=== PATIENT | female | born 1980 | race African-American/Black ===

== ENCOUNTER 2020-12-02 03:56 | Inpatient (IN) ==
[2020-12-02] MEDS ORDERED: ONDANSETRON 4 MG/2 ML VIAL IV STA (04:17)
[2020-12-02] MEDS ORDERED: ALUM/MAG/SIMETH/LIDO VISC 1:1 30 ML BOTTLE PO STA (04:17)
[2020-12-02] MEDS ORDERED: SODIUM CHLORIDE 0.9% 1,000 ML IV STA (04:17)
[2020-12-02] MEDS ORDERED: PANTOPRAZOLE 40 MG VIAL IV STA (04:17)
[2020-12-02 04:30] LABS: Basophils % 0.6 % (0.0-0.8); Eosinophils # 0.1 10*3/uL (0.0-0.87); Eosinophils % 0.8 % (0.00-10.9); Hematocrit 31.1 VOL% (35.7-47.0); Hemoglobin 9.5 GM/DL (12.0-16.0); Immature Granulocytes % 0.5 %; Immature Granulocytes Absolute 0.03 #; Lymphocytes # 2.8 10*3/uL (1.4-4.0); Lymphocytes % 42.9 % (21.3-54.2); Mean Corpuscular HGB Conc 30.5 GM/DL (32-36); Mean Corpuscular Volume 89.1 FL (87-102); Monocytes % 7.4 % (1.7-12.7); Neutrophils % 47.8 % (38.7-73.9); Platelet Count 301 T/CUMM (130-400); Red Blood Count 3.49 MC/CUMM (3.8-5.5); Red Cell Distribution Width 21.3 % (9.3-17.3); White Blood Count 6.6 T/CUMM (4-12)
[2020-12-02 04:44] LABS: Alanine Aminotransferase 48 U/L (13-56); Albumin 2.9 G/DL (3.4-5.0); Alkaline Phosphatase 99 U/L (45-117); Amylase 114 U/L (25-115); Aspartate Amino Transferase 134 U/L (0-37); Blood Urea Nitrogen 6 MG/DL (7-18); Calcium 8.7 MG/DL (8.5-10.1); Carbon Dioxide 23 MMOL/L (21-32); Estimated Glom Filtration Rate 95 ML/MIN; Glucose 90 MG/DL (74-106); Osmolality,Calculated 278.3 MOS/KG (273-304); Potassium 4.1 MMOL/L (3.5-5.1); Sodium 141 MMOL/L (136-145); Total Protein 7.6 G/DL (6.4-8.2); Troponin I < 0.015 NG/ML (0.00-0.045)
[2020-12-02] MEDS ORDERED: MAGNESIUM SULF RIDER 2 GM in PREMIX 1 EACH IV STA (04:51)
[2020-12-02 05:44] LABS: Barbiturates Screen,Urine Negative (Negative); Benzodiazepines Screen,Urine Negative (Negative); Cannabinoid Screen,Urine Negative (Negative); Opiate Screen,Urine Negative (Negative); Phencyclidine Screen,Urine Negative (Negative)
[2020-12-02] MEDS ORDERED: DEXTROSE 50% 25 GM/50 ML VIAL IV PRN (05:47)
[2020-12-02] MEDS ORDERED: ONDANSETRON 4 MG/2 ML VIAL IV PRN (05:47)
[2020-12-02] MEDS ORDERED: GLUCAGON 1 MG VIAL IM PRN (05:47)
[2020-12-02] MEDS ORDERED: SODIUM CHLORIDE 0.9% 1,000 ML IV PRN (05:52)
[2020-12-02] MEDS ORDERED: MORPHINE 4 MG/1 ML VIAL IV PRN (06:41)
[2020-12-02 06:45] LABS: Bacteria,Urine Occasional /HPF (Few); Bilirubin,Urine Negative (Negative); Blood, Urine Negative (Negative); Glucose,Urine (UA) Negative (Negative); Ketones,Urine Negative (Negative); Mucus,Urine Occasional /LPF (Occasional); Nitrite,Urine Negative (Negative); Protein,Urine Negative; RBC,Urine 1 /HPF (0-4); Squamous Epithelial Cell,Urine Occasional /HPF (0-10); Urine Appearance Slightly Hazy (Clear); Urine Color Yellow (Yellow); Urine Specific Gravity 1.018 (1.001-1.035); Urine Urobilinogen < 2.0 EU/DL (0.2-1.0); WBC,Urine 8 /HPF (0-6)
[2020-12-02 09:16] LABS: Hematocrit 27.3 VOL% (35.7-47.0); Hemoglobin 8.2 GM/DL (12.0-16.0)
[2020-12-02] MEDS: FOLIC ACID 1 MG TABLET PO SCH (10:07)
[2020-12-02] MEDS: MULTIVITAMIN (CENTRUM) TABLET PO SCH (10:07)
[2020-12-02] MEDS: SODIUM CHLORIDE 0.9% 1,000 ML IV SCH ×2 (10:07→20:59)
[2020-12-02] MEDS: PANTOPRAZOLE 40 MG VIAL IV SCH ×2 (10:07→20:12)
[2020-12-02] MEDS: THIAMINE 100 MG TABLET PO SCH (10:07)
[2020-12-02 12:12] LABS: Hematocrit 27.4 VOL% (35.7-47.0); Hemoglobin 8.1 GM/DL (12.0-16.0)
[2020-12-02] MEDS: OCTREOTIDE 500 MCG in SODIUM CHLORIDE 0.9% 100 ML IV SCH (12:31)
[2020-12-02] MEDS ORDERED: LORazepam 2 MG/1 ML VIAL ONE (13:53)
[2020-12-02] MEDS: LORazepam 2 MG/1 ML VIAL IV PRN (13:58)
[2020-12-02 18:58] LABS: Hematocrit 26.1 VOL% (35.7-47.0); Hemoglobin 7.6 GM/DL (12.0-16.0)
[2020-12-03 00:42] LABS: Hematocrit 24.3 VOL% (35.7-47.0); Hemoglobin 7.5 GM/DL (12.0-16.0)
[2020-12-03] MEDS: SODIUM CHLORIDE 0.9% 1,000 ML IV SCH ×4 (04:00→21:03)
[2020-12-03 05:11] LABS: Hematocrit 25.6 VOL% (35.7-47.0); Hemoglobin 7.8 GM/DL (12.0-16.0)
[2020-12-03] MEDS: OCTREOTIDE 500 MCG in SODIUM CHLORIDE 0.9% 100 ML IV SCH (07:03)
[2020-12-03 07:32] LABS: Calcium 7.9 MG/DL (8.5-10.1); Osmolality,Calculated 273.7 MOS/KG (273-304); Potassium 4.3 MMOL/L (3.5-5.1)
[2020-12-03] MEDS ORDERED: LACTATED RINGERS 1,000 ML IV SCH (08:00)
[2020-12-03] MEDS: MULTIVITAMIN (CENTRUM) TABLET PO SCH (08:37)
[2020-12-03] MEDS: THIAMINE 100 MG TABLET PO SCH (08:37)
[2020-12-03] MEDS: FOLIC ACID 1 MG TABLET PO SCH (08:37)
[2020-12-03] MEDS: PANTOPRAZOLE 40 MG VIAL IV SCH ×2 (08:38→21:03)
[2020-12-03] MEDS ORDERED: SODIUM CHLORIDE 0.9% 1,000 ML IV PRN (09:02)
[2020-12-03] MEDS ORDERED: MAGNESIUM SULF RIDER 2 GM in PREMIX 1 EACH IV PRN (10:17)
[2020-12-03] MEDS ORDERED: MAGNESIUM SULF RIDER 4 GM in PREMIX 1 EACH IV PRN (10:17)
[2020-12-03 11:57] LABS: Bilirubin,Urine Negative (Negative); Blood, Urine Negative (Negative); Glucose,Urine (UA) Negative (Negative); Ketones,Urine Negative (Negative); Mucus,Urine Occasional /LPF (Occasional); Nitrite,Urine Negative (Negative); Protein,Urine Negative; RBC,Urine 2 /HPF (0-4); Squamous Epithelial Cell,Urine Occasional /HPF (0-10); Urine Appearance CLOUDY (Clear); Urine Color Yellow (Yellow); Urine Specific Gravity 1.009 (1.001-1.035); Urine Urobilinogen < 2.0 EU/DL (0.2-1.0)
[2020-12-03] MEDS ORDERED: propofoL 200 MG/20 ML VIAL IV ONE ×2 (13:16→13:23)
[2020-12-03] MEDS ORDERED: LIDOCAINE 2% 5 ML VIAL ONE (13:16)
[2020-12-03] MEDS: lisinopriL 20 MG TABLET PO SCH (14:14)
[2020-12-03] MEDS: ALBUTEROL 2.5 MG/3 ML NEB RESP TX SCH ×2 (15:30→19:03)
[2020-12-03 15:48] LABS: Hematocrit 30.8 VOL% (35.7-47.0); Hemoglobin 9.1 GM/DL (12.0-16.0)
[2020-12-03] MEDS: LORazepam 2 MG/1 ML VIAL IV PRN (17:36)
[2020-12-04] MEDS: ALBUTEROL 2.5 MG/3 ML NEB RESP TX SCH ×2 (00:48→07:24)
[2020-12-04] MEDS: OCTREOTIDE 500 MCG in SODIUM CHLORIDE 0.9% 100 ML IV SCH (02:54)
[2020-12-04 07:30] LABS: Basophils % 0.4 % (0.0-0.8); Eosinophils # 0.2 10*3/uL (0.0-0.87); Eosinophils % 3.1 % (0.00-10.9); Hematocrit 30.8 VOL% (35.7-47.0); Hemoglobin 9.5 GM/DL (12.0-16.0); Immature Granulocytes % 0.2 %; Immature Granulocytes Absolute 0.01 #; Lymphocytes # 1.4 10*3/uL (1.4-4.0); Lymphocytes % 26.4 % (21.3-54.2); Mean Corpuscular HGB Conc 30.8 GM/DL (32-36); Mean Corpuscular Volume 90.9 FL (87-102); Mean Platelet Volume 9.4 FL (9.6-12.0); Monocytes % 9.2 % (1.7-12.7); Neutrophils % 60.7 % (38.7-73.9); Platelet Count 169 T/CUMM (130-400); Red Blood Count 3.39 MC/CUMM (3.8-5.5); Red Cell Distribution Width 21.2 % (9.3-17.3); White Blood Count 5.1 T/CUMM (4-12)
[2020-12-04 07:41] VITALS: BP 137/96
[2020-12-04 07:45] LABS: Calcium 8.2 MG/DL (8.5-10.1); Osmolality,Calculated 271.7 MOS/KG (273-304)
[2020-12-04] MEDS: lisinopriL 20 MG TABLET PO SCH (08:45)
[2020-12-04] MEDS: FOLIC ACID 1 MG TABLET PO SCH (08:46)
[2020-12-04] MEDS: THIAMINE 100 MG TABLET PO SCH (08:46)
[2020-12-04] MEDS: MULTIVITAMIN (CENTRUM) TABLET PO SCH (08:46)
[2020-12-04] MEDS: PANTOPRAZOLE 40 MG VIAL IV SCH (08:46)
== END 2020-12-04 10:46 | disposition home or self-care (01) | DRG 378 ==
LOC: EDBD → EDUNIT# → SUATTDRO → N.ED 03:56 → N.EDINP 05:47 → N.5E 08:30
PROVIDERS: ADMIT Internal Medicine; ATTEND Internal Medicine

== ENCOUNTER 2022-04-17 05:17 | Inpatient (IN) ==
[2022-04-17] MEDS ORDERED: SODIUM CHLORIDE 0.9% 1,000 ML IV STA ×2 (05:28→07:39)
[2022-04-17 05:53] LABS: Basophils # 0.1 10*3/uL (0.0-0.2); Basophils % 1.1 % (0.0-0.8); Eosinophils % 0.7 % (0.00-10.9); Hematocrit 25.7 VOL% (35.7-47.0); Hemoglobin 7.9 GM/DL (12.0-16.0); Immature Granulocytes % 0.2 %; Immature Granulocytes Absolute 0.01 #; Lymphocytes # 2.4 10*3/uL (1.4-4.0); Lymphocytes % 43.7 % (21.3-54.2); Mean Corpuscular HGB Conc 30.7 GM/DL (32-36); Mean Corpuscular Volume 98.1 FL (87-102); Mean Platelet Volume 8.7 FL (9.6-12.0); Monocytes # 0.6 10*3/uL (0.11-0.8); Monocytes % 11.6 % (1.7-12.7); NRBC # 0.02 10*3/uL; Neutrophils % 42.7 % (38.7-73.9); Platelet Count 216 T/CUMM (130-400); Red Blood Count 2.62 MC/CUMM (3.8-5.5); Red Cell Distribution Width 19.9 % (9.3-17.3); White Blood Count 5.5 T/CUMM (4-12)
[2022-04-17] MEDS ORDERED: ONDANSETRON 4 MG/2 ML VIAL IV STA (06:11)
[2022-04-17] MEDS ORDERED: HYDROmorphone 1 MG/1 ML SYRINGE IV STA (06:11)
[2022-04-17 06:15] LABS: Alanine Aminotransferase 39 U/L (13-56); Albumin 2.8 G/DL (3.4-5.0); Alkaline Phosphatase 134 U/L (45-117); Aspartate Amino Transferase 105 U/L (0-37); Bilirubin,Total < 0.39 MG/DL (0.20-1.00); Blood Urea Nitrogen 6 MG/DL (7-18); Calcium 8.4 MG/DL (8.5-10.1); Carbon Dioxide 23 MMOL/L (21-32); Chloride 110 MMOL/L (98-107); Glucose 94 MG/DL (74-106); Osmolality,Calculated 283.8 MOS/KG (273-304); Potassium 3.8 MMOL/L (3.5-5.1); Sodium 144 MMOL/L (136-145); Total Protein 6.8 G/DL (6.4-8.2)
[2022-04-17 06:52] LABS: PT Patient Result 11.2 SECS (10.1-12.1); Partial Thromboplastin Time 22.6 SECS (23.7-32.9)
[2022-04-17 07:04] LABS: Barbiturates Screen,Urine Negative (Negative); Benzodiazepines Screen,Urine Negative (Negative); Cannabinoid Screen,Urine Negative (Negative); Opiate Screen,Urine Negative (Negative); Phencyclidine Screen,Urine Negative (Negative)
[2022-04-17] MEDS ORDERED: LEVOFLOXACIN INJ 500 MG/100 ML PREMIX IV STA (09:19)
[2022-04-17 10:07] LABS: Bacteria,Urine Occasional /HPF (Few); Mucus,Urine Occasional /LPF (Occasional); Squamous Epithelial Cell,Urine Occasional /HPF (0-10)
[2022-04-17 10:08] LABS: Bilirubin,Urine Negative (Negative); Glucose,Urine (UA) Negative (Negative); Ketones,Urine Negative (Negative); Nitrite,Urine Negative (Negative); Protein,Urine 30 mg/dL (Negative); Urine Appearance Clear (Clear); Urine Color Yellow (Yellow); Urine Specific Gravity 1.025 (1.001-1.035); Urine pH 5.5 (4.5-8.0)
[2022-04-17 10:09] LABS: Blood, Urine Negative (Negative); Urine Urobilinogen 0.2 eU/dL (<2.0)
[2022-04-17] MEDS ORDERED: ONDANSETRON 4 MG/2 ML VIAL IV PRN (10:42)
[2022-04-17] MEDS ORDERED: hydrALAZINE 20 MG/1 ML VIAL IV PRN (10:42)
[2022-04-17] MEDS ORDERED: DEXTROSE 10% 250 ML BAG IV PRN (10:42)
[2022-04-17] MEDS ORDERED: GLUCAGON 1 MG VIAL IM PRN (10:42)
[2022-04-17] MEDS ORDERED: THIAMINE INJ 100 MG, FOLIC ACID INJ 1 MG, MULTIVITAMIN INJ 10 ML in SODIUM CHLORIDE 0.4... IV SCH (11:00)
[2022-04-17] MEDS: chlordiazePOXIDE 25 MG CAPSULE PO SCH ×3 (11:40→22:15)
[2022-04-17 11:49] LABS: Folate 8.66 NG/ML (5.38-24.0)
[2022-04-17] MEDS ORDERED: MAGNESIUM SULF RIDER 4 GM/100 ML PREMIX IV PRN (13:44)
[2022-04-17] MEDS: MORPHINE 2 MG/1 ML SYRINGE IV PRN ×2 (14:13→20:35)
[2022-04-17] MEDS: LORazepam 1 MG TABLET PO PRN (20:35)
[2022-04-18 02:36] LABS: Basophils % 0.4 % (0.0-0.8); Eosinophils # 0.1 10*3/uL (0.0-0.87); Hematocrit 23.6 VOL% (35.7-47.0); Hemoglobin 7.1 GM/DL (12.0-16.0); Immature Granulocytes % 0.4 %; Immature Granulocytes Absolute 0.02 #; Lymphocytes % 20.4 % (21.3-54.2); Mean Corpuscular HGB Conc 30.1 GM/DL (32-36); Mean Corpuscular Volume 98.3 FL (87-102); Mean Platelet Volume 8.9 FL (9.6-12.0); Monocytes # 0.4 10*3/uL (0.11-0.8); Monocytes % 8.6 % (1.7-12.7); NRBC # 0.02 10*3/uL; Neutrophils % 69.2 % (38.7-73.9); Platelet Count 155 T/CUMM (130-400); Red Cell Distribution Width 19.4 % (9.3-17.3); White Blood Count 5.1 T/CUMM (4-12)
[2022-04-18 03:03] LABS: Albumin 2.3 G/DL (3.4-5.0); Bilirubin,Total 0.7 MG/DL (0.20-1.00); Calcium 7.2 MG/DL (8.5-10.1); Osmolality,Calculated 274.4 MOS/KG (273-304); Potassium 3.4 MMOL/L (3.5-5.1); Total Protein 5.7 G/DL (6.4-8.2)
[2022-04-18] MEDS: MORPHINE 2 MG/1 ML SYRINGE IV PRN (05:45)
[2022-04-18] MEDS: chlordiazePOXIDE 25 MG CAPSULE PO SCH ×4 (05:45→23:05)
[2022-04-18] MEDS ORDERED: PANTOPRAZOLE 40 MG TABLET PO SCH (09:00)
[2022-04-18] MEDS ORDERED: FOLIC ACID 1 MG TABLET PO SCH (09:00)
[2022-04-18] MEDS: PROMETHAZINE INJ 25 MG in SODIUM CHLORIDE 0.9% 50 ML IV SCH ×2 (12:55→16:58)
[2022-04-18] MEDS: lisinopriL 20 MG TABLET PO SCH (13:03)
[2022-04-18] MEDS: PANTOPRAZOLE 40 MG TABLET PO SCH ×2 (13:03→20:37)
[2022-04-18] MEDS: 1: THIAMINE INJ 100 MG, FOLIC ACID INJ 1 MG, MULTIVITAMIN INJ 10 ML in SODIUM CHLORIDE 0 IV SCH (13:04)
[2022-04-19] MEDS: 1: THIAMINE INJ 100 MG, FOLIC ACID INJ 1 MG, MULTIVITAMIN INJ 10 ML in SODIUM CHLORIDE 0 IV SCH ×2 (00:17→16:06)
[2022-04-19] MEDS: chlordiazePOXIDE 25 MG CAPSULE PO SCH ×4 (05:27→22:32)
[2022-04-19 05:56] LABS: Basophils % 0.2 % (0.0-0.8); Eosinophils # 0.1 10*3/uL (0.0-0.87); Eosinophils % 2.7 % (0.00-10.9); Hematocrit 24.1 VOL% (35.7-47.0); Hemoglobin 7.1 GM/DL (12.0-16.0); Immature Granulocytes % 0.2 %; Immature Granulocytes Absolute 0.01 #; Lymphocytes # 1.2 10*3/uL (1.4-4.0); Lymphocytes % 29.9 % (21.3-54.2); Mean Corpuscular HGB Conc 29.5 GM/DL (32-36); Mean Corpuscular Volume 100.4 FL (87-102); Mean Platelet Volume 9.2 FL (9.6-12.0); Monocytes # 0.3 10*3/uL (0.11-0.8); Monocytes % 8.5 % (1.7-12.7); Neutrophils % 58.5 % (38.7-73.9); Platelet Count 169 T/CUMM (130-400)
[2022-04-19 06:12] LABS: Calcium 8.1 MG/DL (8.5-10.1); Osmolality,Calculated 279.1 MOS/KG (273-304); Potassium 3.5 MMOL/L (3.5-5.1)
[2022-04-19] MEDS: lisinopriL 20 MG TABLET PO SCH (08:09)
[2022-04-19] MEDS: PANTOPRAZOLE 40 MG TABLET PO SCH ×2 (08:09→20:28)
[2022-04-19] MEDS: MAGNESIUM SULF RIDER 2 GM/50 ML PREMIX IV PRN (08:10)
[2022-04-19] MEDS: POLYETHYLENE GLYCOL POWDER 17 GM PACK PO SCH (13:11)
[2022-04-20] MEDS: chlordiazePOXIDE 25 MG CAPSULE PO SCH ×3 (04:00→20:07)
[2022-04-20 05:20] LABS: Basophils % 0.2 % (0.0-0.8); Eosinophils # 0.1 10*3/uL (0.0-0.87); Hematocrit 24.9 VOL% (35.7-47.0); Immature Granulocytes % 0.7 %; Immature Granulocytes Absolute 0.03 #; Lymphocytes # 1.3 10*3/uL (1.4-4.0); Lymphocytes % 27.9 % (21.3-54.2); Mean Corpuscular HGB Conc 28.1 GM/DL (32-36); Mean Corpuscular Volume 100.8 FL (87-102); Mean Platelet Volume 9.6 FL (9.6-12.0); Monocytes # 0.4 10*3/uL (0.11-0.8); Monocytes % 9.4 % (1.7-12.7); Neutrophils % 59.8 % (38.7-73.9); Platelet Count 171 T/CUMM (130-400); Red Blood Count 2.47 MC/CUMM (3.8-5.5); Red Cell Distribution Width 18.6 % (9.3-17.3); White Blood Count 4.6 T/CUMM (4-12)
[2022-04-20 05:39] LABS: Calcium 8.5 MG/DL (8.5-10.1); Osmolality,Calculated 279.1 MOS/KG (273-304); Potassium 3.5 MMOL/L (3.5-5.1)
[2022-04-20] MEDS ORDERED: SODIUM CHLORIDE 0.9% 1,000 ML IV PRN (07:34)
[2022-04-20] MEDS: POLYETHYLENE GLYCOL POWDER 17 GM PACK PO SCH (09:08)
[2022-04-20] MEDS: PANTOPRAZOLE 40 MG TABLET PO SCH ×2 (09:08→20:07)
[2022-04-20] MEDS: lisinopriL 20 MG TABLET PO SCH (09:08)
[2022-04-20] MEDS: LORazepam 1 MG TABLET PO PRN (09:08)
[2022-04-20] MEDS: MAGNESIUM SULF RIDER 2 GM/50 ML PREMIX IV PRN (15:43)
[2022-04-20] MEDS: MAGNESIUM OXIDE 400 MG TABLET PO SCH (15:46)
[2022-04-20] MEDS: MORPHINE 2 MG/1 ML SYRINGE IV PRN (19:45)
[2022-04-20] MEDS: HYDROCORTISONE 25 MG SUPP RECTAL SCH (20:07)
[2022-04-21] MEDS: chlordiazePOXIDE 25 MG CAPSULE PO SCH ×2 (02:09→10:06)
[2022-04-21 05:05] LABS: Basophils % 0.7 % (0.0-0.8); Eosinophils # 0.1 10*3/uL (0.0-0.87); Eosinophils % 2.4 % (0.00-10.9); Hematocrit 25.5 VOL% (35.7-47.0); Hemoglobin 7.6 GM/DL (12.0-16.0); Immature Granulocytes % 0.4 %; Immature Granulocytes Absolute 0.02 #; Lymphocytes # 1.3 10*3/uL (1.4-4.0); Lymphocytes % 23.9 % (21.3-54.2); Mean Corpuscular HGB Conc 29.8 GM/DL (32-36); Mean Corpuscular Volume 97.7 FL (87-102); Mean Platelet Volume 9.8 FL (9.6-12.0); Monocytes # 0.6 10*3/uL (0.11-0.8); Monocytes % 11.6 % (1.7-12.7); NRBC # 0.03 10*3/uL; Platelet Count 148 T/CUMM (130-400); Red Blood Count 2.61 MC/CUMM (3.8-5.5); Red Cell Distribution Width 19.4 % (9.3-17.3); White Blood Count 5.4 T/CUMM (4-12)
[2022-04-21 05:25] LABS: Calcium 7.8 MG/DL (8.5-10.1); Osmolality,Calculated 280.1 MOS/KG (273-304); Potassium 3.2 MMOL/L (3.5-5.1)
[2022-04-21] MEDS ORDERED: MAGNESIUM SULF RIDER 4 GM/100 ML PREMIX IV ONE (07:45)
[2022-04-21] MEDS ORDERED: LACTATED RINGERS 1,000 ML IV SCH (08:00)
[2022-04-21] MEDS ORDERED: propofoL 200 MG/20 ML VIAL IV ONE (08:52)
[2022-04-21] MEDS ORDERED: LIDOCAINE 2% 5 ML VIAL ONE (08:52)
[2022-04-21] MEDS: lisinopriL 20 MG TABLET PO SCH (10:05)
[2022-04-21] MEDS: HYDROCORTISONE 25 MG SUPP RECTAL SCH (10:05)
[2022-04-21] MEDS: POLYETHYLENE GLYCOL POWDER 17 GM PACK PO SCH (10:05)
[2022-04-21] MEDS: PANTOPRAZOLE 40 MG TABLET PO SCH (10:06)
[2022-04-21] MEDS: MAGNESIUM OXIDE 400 MG TABLET PO SCH (10:06)
[2022-04-21] MEDS: POTASSIUM CHLORIDE 20 MEQ TABLET PO PRN ×3 (10:06→13:44)
[2022-04-21 12:10] VITALS: BP 163/88
== END 2022-04-21 13:56 | disposition home or self-care (01) | DRG 392 ==
LOC: EDUNIT# → EDBD → N.ED 05:17 → SUATTDRO 10:46 → N.EDINP 10:46 → N.5E 12:00
PROVIDERS: ADMIT Internal Medicine; ATTEND Hospitalist

== ENCOUNTER 2022-09-13 02:58 | Observation (INO) ==
[2022-09-13 03:38] LABS: Bacteria,Urine Occasional /HPF (Few); Squamous Epithelial Cell,Urine Moderate /HPF (0-10)
[2022-09-13 03:40] LABS: Bilirubin,Urine Negative (Negative); Blood, Urine Moderate mg/dL (Negative); Glucose,Urine (UA) Negative (Negative); Ketones,Urine Negative (Negative); Nitrite,Urine Negative (Negative); Protein,Urine 30 mg/dL (Negative); Urine Appearance Slightly Cloudy (Clear); Urine Color Yellow (Yellow); Urine pH 8.5 (4.5-8.0)
[2022-09-13 03:59] LABS: Basophils % 0.8 % (0.0-0.8); Eosinophils % 0.2 % (0.00-10.9); Hematocrit 27.8 VOL% (35.7-47.0); Hemoglobin 9.1 GM/DL (12.0-16.0); Immature Granulocytes % 0.4 %; Immature Granulocytes Absolute 0.02 #; Lymphocytes # 1.3 10*3/uL (1.4-4.0); Lymphocytes % 26.5 % (21.3-54.2); Mean Corpuscular HGB Conc 32.7 GM/DL (32-36); Mean Corpuscular Volume 96.9 FL (87-102); Mean Platelet Volume 9.8 FL (9.6-12.0); Monocytes # 0.5 10*3/uL (0.11-0.8); Monocytes % 10.6 % (1.7-12.7); NRBC # 0.02 10*3/uL; Neutrophils % 61.5 % (38.7-73.9); Platelet Count 125 T/CUMM (130-400); Red Blood Count 2.87 MC/CUMM (3.8-5.5); Red Cell Distribution Width 20.3 % (9.3-17.3); White Blood Count 4.7 T/CUMM (4-12)
[2022-09-13 04:19] LABS: Albumin 2.6 G/DL (3.4-5.0); Calcium 7.9 MG/DL (8.5-10.1); Potassium 3.4 MMOL/L (3.5-5.1); Total Protein 6.3 G/DL (6.4-8.2)
[2022-09-13] MEDS ORDERED: MORPHINE 2 MG/1 ML SYRINGE IV STA (04:41)
[2022-09-13] MEDS ORDERED: ONDANSETRON 4 MG/2 ML VIAL IV ONE (04:41)
[2022-09-13 04:51] LABS: Barbiturates Screen,Urine Negative (Negative); Benzodiazepines Screen,Urine Negative (Negative); Cannabinoid Screen,Urine Negative (Negative); Opiate Screen,Urine Negative (Negative); Phencyclidine Screen,Urine Negative (Negative)
[2022-09-13] MEDS ORDERED: ERTAPENEM 1,000 MG in SODIUM CHLORIDE 0.9% 100 ML IV SCH (07:00)
[2022-09-13] MEDS ORDERED: ONDANSETRON 4 MG/2 ML VIAL IV PRN (07:39)
[2022-09-13] MEDS ORDERED: hydrALAZINE 20 MG/1 ML VIAL IV PRN (07:39)
[2022-09-13] MEDS ORDERED: ACETAMINOPHEN 325 MG TABLET PO PRN (07:39)
[2022-09-13] MEDS ORDERED: LACTULOSE 20 GM/30 ML UDCUP PO PRN (07:39)
[2022-09-13] MEDS ORDERED: POTASSIUM CHLORIDE RIDER 10 MEQ/100 ML PREMIX IV PRN (08:35)
[2022-09-13] MEDS ORDERED: POTASSIUM CHLORIDE 20 MEQ TABLET PO PRN (08:35)
[2022-09-13] MEDS: LEVOFLOXACIN INJ 500 MG/100 ML PREMIX IV SCH (09:12)
[2022-09-13] MEDS: FOLIC ACID 1 MG TABLET PO SCH ×2 (09:13→21:11)
[2022-09-13] MEDS: ENOXAPARIN 40 MG/0.4 ML SYRINGE SUBCUT SCH (09:13)
[2022-09-13] MEDS: DOCUSATE SODIUM 100 MG CAPSULE PO SCH ×2 (09:13→21:11)
[2022-09-13] MEDS: THIAMINE 100 MG TABLET PO SCH (09:14)
[2022-09-13] MEDS ORDERED: INFLUENZA VIRUS VACCINE 0.5 ML SYRINGE IM ONE (09:46)
[2022-09-13] MEDS: SODIUM CHLOR 0.9% KCL 20 MEQ 20 MEQ/1,000 ML BAG IV SCH (10:00)
[2022-09-13] MEDS ORDERED: ALUMINUM/MAGNES/SIMETH MAX STR 30 ML UDCUP PO PRN (10:50)
[2022-09-13] MEDS ORDERED: lisinopriL 10 MG TABLET PO SCH ×2 (11:00→21:00)
[2022-09-13] MEDS: metroNIDAZOLE INJ 500 MG/100 ML PREMIX IV SCH ×2 (14:30→21:12)
[2022-09-13] MEDS: MORPHINE 2 MG/1 ML SYRINGE IV PRN ×2 (15:10→21:44)
[2022-09-13] MEDS ORDERED: LORazepam 2 MG/1 ML VIAL IV PRN (16:13)
[2022-09-13 17:30] LABS: % Iron Saturation 97.5 % (18-50)
[2022-09-13 18:11] LABS: Hepatitis B Core IgM Quant 0.06 Index; Hepatitis B Surface Ag Quant < 0.10 Index; Hepatitis B Surface Ag Result Non-Reactive (NonReactive); Hepatitis C Virus Ab Quant < 0.02 Index; Hepatitis C Virus Ab Result Non-Reactive (NonReactive)
[2022-09-14 00:29] LABS: 25 Hydroxy Vitamin D Total 11.8 NG/ML (30-100); Folate 10.63 NG/ML (5.38-24.0)
[2022-09-14] MEDS: SODIUM CHLOR 0.9% KCL 20 MEQ 20 MEQ/1,000 ML BAG IV SCH ×2 (01:20→11:53)
[2022-09-14] MEDS: MORPHINE 2 MG/1 ML SYRINGE IV PRN ×3 (03:26→20:33)
[2022-09-14 05:31] LABS: Basophils % 0.7 % (0.0-0.8); Eosinophils % 0.5 % (0.00-10.9); Hematocrit 27.1 VOL% (35.7-47.0); Hemoglobin 8.4 GM/DL (12.0-16.0); Immature Granulocytes % 0.5 %; Immature Granulocytes Absolute 0.02 #; Lymphocytes # 1.1 10*3/uL (1.4-4.0); Lymphocytes % 28.2 % (21.3-54.2); Mean Corpuscular Volume 101.1 FL (87-102); Mean Platelet Volume 9.8 FL (9.6-12.0); Monocytes # 0.5 10*3/uL (0.11-0.8); Monocytes % 13.2 % (1.7-12.7); NRBC # 0.02 10*3/uL; Neutrophils % 56.9 % (38.7-73.9); Platelet Count 124 T/CUMM (130-400); Red Blood Count 2.68 MC/CUMM (3.8-5.5); Red Cell Distribution Width 19.6 % (9.3-17.3)
[2022-09-14] MEDS: metroNIDAZOLE INJ 500 MG/100 ML PREMIX IV SCH ×3 (05:38→21:30)
[2022-09-14 05:58] LABS: Albumin 2.3 G/DL (3.4-5.0); Bilirubin,Total 3.6 MG/DL (0.20-1.00); Calcium 7.6 MG/DL (8.5-10.1); Osmolality,Calculated 264.1 MOS/KG (273-304); Potassium 3.8 MMOL/L (3.5-5.1); Thyroid Stimulating Hormone 7.36 uIU/ml (0.358-3.74); Total Protein 5.6 G/DL (6.4-8.2)
[2022-09-14 08:18] LABS: Free T4 (Free Thyroxine) 1.39 NG/DL (0.76-1.46)
[2022-09-14] MEDS: LEVOFLOXACIN INJ 500 MG/100 ML PREMIX IV SCH (09:08)
[2022-09-14] MEDS: FOLIC ACID 1 MG TABLET PO SCH ×2 (09:09→21:30)
[2022-09-14] MEDS: DOCUSATE SODIUM 100 MG CAPSULE PO SCH ×2 (09:09→21:30)
[2022-09-14] MEDS: ENOXAPARIN 40 MG/0.4 ML SYRINGE SUBCUT SCH (09:09)
[2022-09-14] MEDS: PANTOPRAZOLE 40 MG VIAL IV SCH (09:10)
[2022-09-14] MEDS: THIAMINE 100 MG TABLET PO SCH (09:10)
[2022-09-14] MEDS: amLODIPine 10 MG TABLET PO SCH (09:16)
[2022-09-14] MEDS: CHOLECALCIFEROL 1,000 UNIT TABLET PO SCH (09:16)
[2022-09-14] MEDS: lisinopriL 20 MG TABLET PO SCH (09:17)
[2022-09-14] MEDS ORDERED: MAGNESIUM SULF RIDER 4 GM/100 ML PREMIX IV ONE (11:00)
[2022-09-14] MEDS ORDERED: ZALEPLON 5 MG CAPSULE PO PRN (23:09)
[2022-09-15] MEDS: MORPHINE 2 MG/1 ML SYRINGE IV PRN (02:47)
[2022-09-15] MEDS: metroNIDAZOLE INJ 500 MG/100 ML PREMIX IV SCH (05:42)
[2022-09-15 06:15] LABS: Albumin 2.3 G/DL (3.4-5.0); Calcium 7.4 MG/DL (8.5-10.1); Osmolality,Calculated 267.8 MOS/KG (273-304); Potassium 3.2 MMOL/L (3.5-5.1); Total Protein 5.6 G/DL (6.4-8.2)
[2022-09-15] MEDS ORDERED: LEVOTHYROXINE 50 MCG TABLET PO SCH (06:30)
[2022-09-15] MEDS: SODIUM CHLOR 0.9% KCL 20 MEQ 20 MEQ/1,000 ML BAG IV SCH (07:48)
[2022-09-15 08:20] VITALS: BP 146/96
[2022-09-15] MEDS ORDERED: MAGNESIUM SULF RIDER 2 GM/50 ML PREMIX IV ONE (09:00)
[2022-09-15] MEDS ORDERED: POTASSIUM CHLORIDE 20 MEQ TABLET PO ONE (09:00)
[2022-09-15] MEDS: LEVOFLOXACIN INJ 500 MG/100 ML PREMIX IV SCH (09:14)
[2022-09-15] MEDS: THIAMINE 100 MG TABLET PO SCH (09:16)
[2022-09-15] MEDS: CHOLECALCIFEROL 1,000 UNIT TABLET PO SCH (09:16)
[2022-09-15] MEDS: lisinopriL 20 MG TABLET PO SCH (09:16)
[2022-09-15] MEDS: FOLIC ACID 1 MG TABLET PO SCH (09:16)
[2022-09-15] MEDS: DOCUSATE SODIUM 100 MG CAPSULE PO SCH (09:17)
[2022-09-15] MEDS: amLODIPine 10 MG TABLET PO SCH (09:17)
[2022-09-15] MEDS: PANTOPRAZOLE 40 MG VIAL IV SCH (09:19)
[2022-09-15] MEDS: ENOXAPARIN 40 MG/0.4 ML SYRINGE SUBCUT SCH (10:07)
[2022-09-15] MEDS ORDERED: POTASSIUM BICARB EFFERVESCENT 20 MEQ TAB.EFF PO ONE (11:00)
[2022-09-15] MEDS ORDERED: INFLUENZA VIRUS VACCINE 0.5 ML SYRINGE IM ONE (11:00)
== END 2022-09-15 10:45 | disposition home health service (06) ==
LOC: EDBD → EDUNIT# → N.ED 02:58 → N.EDINP 02:58 → SUATTDRO 07:38 → N.2E 14:35
PROVIDERS: ADMIT Internal Medicine; ATTEND Family Medicine